=== PATIENT | female | born 1930 | race Caucasian/White ===

== ENCOUNTER 2018-01-28 20:04 | Emergency (ER) | payer MEDICARE, BC ==
--- NOTE | 2018-01-28 21:26 | EDM.PDOC ---
ED HPI GENERAL MEDICAL PROBLEM - General Chief Complaint: Lower Extremity Injury/Pain Stated Complaint: LEFT LEG PAIN Time Seen by Provider: 01/28/18 21:15 Source of Information: Reports: Patient History Limitations: Reports: No Limitations - History of Present Illness INITIAL COMMENTS - FREE TEXT/NARRATIVE: Lily presents to the emergency room tonight with acute onset left hip pain today. She denies trauma or injury. Left Hip Pain Score (Numeric/FACES): 7 - Related Data Allergies Allergy/AdvReac Type Severity Reaction Status Date / Time penicillin Allergy Hives Verified 01/28/18 20:59 Sulfa (Sulfonamide Allergy Hives Verified 01/28/18 20:59 Antibiotics) Home Meds: Home Meds Hydrochlorothiazide 25 mg PO DAILY 11/13/15 [History] Latanoprost [Xalatan 0.005% Ophth Soln] 2.5 ml EYEBOTH BID 11/13/15 [History] Naproxen [Take Home: Naproxen 500 MG, 4 Tab Pack] 500 mg PO BID 11/13/15 [ History] Timolol Maleate [Timoptic 0.5% Ophth Soln] 1 drop TOP BID 11/13/15 [History] cycloSPORINE [Restasis] 1 drop TOP DAILY 11/13/15 [History] Aspirin [Myrtle Chewable] 81 mg PO DAILY 01/28/18 [History] Past Medical History HEENT History: Reports: Cataract, Glaucoma Respiratory History: Reports: Bronchitis, Recurrent Gastrointestinal History: Reports: Cholelithiasis HEALTH CARE LIAISON History: Reports: Musculoskeletal History: Reports: Arthritis - Infectious Disease History Infectious Disease History: Reports: Chicken Pox, Measles, Mumps, Other (See Below) Other Infectious Disease History: polio - Past Surgical History HEENT Surgical History: Reports: Cataract Surgery, Tonsillectomy GI Surgical History: Reports: Appendectomy, Cholecystectomy Female Surgical History: Reports: Hysterectomy, Salpingo-Oophorectomy Social & Family History - Family History Family Medical History: Noncontributory - Tobacco Use Smoking Status *Q: Never Smoker - Caffeine Use Caffeine Use: Reports: Coffee - Recreational Drug Use Recreational Drug Use: No Review of Systems - Review of Systems Review Of Systems: See Below Constitutional: Denies: Chills, Diaphoresis, Fever, Weakness Eyes: Reports: No Symptoms Ears: Reports: No Symptoms Nose: Reports: No Symptoms Mouth/Throat: Reports: No Symptoms Respiratory: Reports: No Symptoms Cardiovascular: Reports: No Symptoms GI/Abdominal: Reports: No Symptoms Genitourinary: Reports: No Symptoms Musculoskeletal: Reports: Other (left hip pain since today. ) Skin: Denies: Bruising, Rash, Erythema, Wound Neurological: Reports: No Symptoms Psychiatric: Reports: No Symptoms ED EXAM, GENERAL - Physical Exam Exam: See Below Free Text/Narrative:: Lily is an alert and oriented 87 year old female presenting with acute onset left hip pain. Exam Limited By: No Limitations General Appearance: Alert, WD/WN, Mild Distress Eye Exam: Bilateral Eye: Normal Inspection, PERRL Ears: Normal External Exam, Normal Canal, Hearing Grossly Normal, Normal TMs Ear Exam: Bilateral Ear: Auricle Normal, Canal Normal, TM normal Nose: Normal Inspection, Normal Mucosa, No Blood Throat/Mouth: Normal Inspection, Normal Lips, Normal Oropharynx, Normal Voice, No Airway Compromise Head: Atraumatic, Normocephalic Neck: Normal Inspection, Supple, Non-Tender, Full Range of Motion Respiratory/Chest: No Respiratory Distress, Lungs Clear, Normal Breath Sounds, No Accessory Muscle Use, Chest Non-Tender Cardiovascular: Normal Peripheral Pulses, Regular Rate, Rhythm, No Edema, No Murmur, No Rub Peripheral Pulses: 2+: Radial (L), Radial (R), Dorsalis Pedis (L), Dorsalis Pedis (R) Back Exam: Normal Inspection, Full Range of Motion. No: CVA Tenderness (R), CVA Tenderness (L) Extremities: Normal Inspection, Non-Tender, No Pedal Edema, Normal Capillary Refill, Limited Range of Motion Neurological: Alert, Oriented, CN II-XII Intact, Normal Cognition, Normal Reflexes, No Motor/Sensory Deficits, Other (Gait limping with favoring of left leg. Pain over greter trochanter left hip. Decreased range of motion, pain increased with weight bearing. ) Psychiatric: Normal Affect, Normal Mood Skin Exam: Warm, Dry, Intact, Normal Color, No Rash Lymphatic: No Adenopathy ED TRAUMA EXTREMITY PROCEDURES - Additional/Other Procedure(s) Other (Free Text) Procedure(s): Consent obtained for left hip bursitis injection. Risks and benefits explained , patient verbalized understanding. Under the direction of Dr. Guillen, using sterile techinque the skin was prepped with betadine and Injection of kenalog 40mg and 8.5 ml bupivacaine 0.5% to left greater trochanter area with immediate relief of pain to 25%. Patient tolerated well. Course - Vital Signs Last Recorded V/S: Last Vital Signs Temp 36.4 C 01/28/18 20:57 Pulse 69 01/28/18 21:42 Resp 16 01/28/18 21:42 BP 119/75 01/28/18 21:42 Pulse Ox 94 L 01/28/18 21:42 - Orders/Labs/Meds Orders: Active Orders 24 hr Category Date Time Status Hip Min 2V or 3V Lt [CR] Stat Exams 01/28/18 21:26 Taken Meds: Medications Discontinued Medications Generic Name Dose Route Start Last Admin Trade Name Freq PRN Reason Stop Dose Admin Bupivacaine HCl 30 ml 01/28/18 22:23 01/28/18 23:08 Marcaine 0.5% INJECT 01/28/18 22:24 30 ml ONETIME ONE Administration Povidone Iodine Confirm 01/28/18 22:46 01/28/18 23:08 Betadine 10% Soln Administered 01/28/18 22:47 1 ml Dose Administration 1 ml .ROUTE .STK-MED ONE Triamcinolone Acetonide 40 mg 01/28/18 22:21 01/28/18 23:08 Kenalog-40 INJECT 40 mg ASDIRECTED PRN Administration Pain - Radiology Interpretation Free Text/Narrative:: Left hip x-ray reviewed, wet read, negative for acute finding. - Re-Assessments/Exams Free Text/Narrative Re-Assessment/Exam: 01/28/18 22:25 X-ray reviewed, wet read with no acute findings. Discussed case with Dr. Guillen, we will do injection for left hip bursitis. Departure - Departure Time of Disposition: 23:03 Disposition: Home, Self-Care 01 Condition: Good Clinical Impression: Trochanteric bursitis of left hip - Discharge Information Instructions: Hip Bursitis, [id number], Trochanteric Bursitis Referrals: Duy Leyva MD [Primary Care Provider] - Forms: ED Department Discharge Additional Instructions: You have been evaluated and treated in the emergency room for left hip bursitis. An injection of kenalog and bupivacaine was completed to the left hip with 25% improvement initially. Rest, take ibuprofen and acetaminophen as needed for pain. Follow up with your primary provider in in 3 to 7 days for a recheck. Return for worsening, issues or concerns. - My Orders Last 24 Hours: My Active Orders 01/28/18 21:26 Hip Min 2V or 3V Lt [CR] Stat - Assessment/Plan Last 24 Hours: My Active Orders 01/28/18 21:26 Hip Min 2V or 3V Lt [CR] Stat Assessment:: Trochanteric bursitis left hip Improvement with kenalog/bupivacaine injection Plan: Patient evaluated and treated in the emergency room for left hip bursitis. An injection of kenalog and bupivacaine was completed to the left hip with 25% improvement initially. Rest, take ibuprofen and acetaminophen as needed for pain. Follow up with your primary provider in in 3 to 7 days for a recheck. Return for worsening, issues or concerns.
[2018-01-28 21:42] VITALS: BP 119/75
[2018-01-28] MEDS ORDERED: Triamcinolone Acetonide 40 MG/ML 1 ML MDV INJECT PRN (22:21)
[2018-01-28] MEDS ORDERED: Bupivacaine 0.5% 30 ML SDV INJECT ONE (22:23)
[2018-01-28] MEDS ORDERED: Povidone-Iodine 10% Soln 118.25 ML Bottle ONE (22:46)
--- NOTE | 2018-01-30 09:09 | CR ---
Hip Min 2V or 3V Lt CLINICAL HISTORY: Left hip pain acute onset FINDINGS: No acute fracture or dislocation is noted. No destructive changes are present. There is weston e minimal deformity of the left superior pubic ramus. This may be from old injury. The joint spaces m ildly narrowed. There is left acetabular spurring. Impression: Mild osteoarthritic changes in the left hip Minimal deformity of the left superior pubic ramus. This may be from old injury. Clinical correlation necessary
== END 2018-01-28 23:18 | disposition home or self-care (01) ==
LOC: JP.ED 20:04
DX: M70.62 Trochanteric bursitis, left hip (principal); Z88.0 Allergy status to penicillin; Z88.2 Allergy status to sulfonamides; Z79.899 Other long term (current) drug therapy; Z79.82 Long term (current) use of aspirin
CPT/HCPCS: 20610; 73502; 99284; J3301; 99283-25